=== PATIENT | male | born 1930 | race Hispanic/Latino ===

== ENCOUNTER → 2018-03-26 | Outpatient (CLI) | payer MEDICARE ==
[~2018-03-26] MED LIST: AMLO10TA6 PO; CARV25TA PO; GLIP5TAB11 PO; GUAI118S23 PO; INSU3INS3 SQ; LEVO25TA54 PO; RANO500T3 PO; TAMS0.4C32 PO; TORS100T16 PO; TYL3B PO; ZOLP10TA6 PO
== END | disposition home or self-care (01) ==
LOC: SHCH 09:47
PROVIDERS: ATTEND Internal Medicine Cardiovascular Disease
DX: R09.89 Other specified symptoms and signs involving the circulatory and respiratory systems (principal)
CPT/HCPCS: 93880

== ENCOUNTER → 2018-12-18 | Outpatient (CLI) | payer MEDICARE ==
[~2018-12-18] MED LIST changes: +ACET-66 PO; +ALPR0.255 PO; -AMLO10TA6 PO; +ASPI-555 PO; +ATOR10 PO; +BENZ200C53 PO; +FOLI1TAB15 PO; +FOLI1TAB61 PO; -GLIP5TAB11 PO; -GUAI118S23 PO; -INSU3INS3 SQ; +IRON45TA10 PO; -RANO500T3 PO; +RANO500T5 PO; +ROPI0.5T5 PO; +TAMS-1 PO; -TAMS0.4C32 PO; -TORS100T16 PO; -TYL3B PO; -ZOLP10TA6 PO
== END | disposition home or self-care (01) ==
LOC: SHCH 12:48
PROVIDERS: ATTEND Internal Medicine Cardiovascular Disease
DX: I11.9 Hypertensive heart disease without heart failure (principal); I70.0 Atherosclerosis of aorta
CPT/HCPCS: 93306

== ENCOUNTER → 2019-01-21 | Outpatient (CLI) | payer MEDICARE ==
[~2019-01-21] VITALS: Ht 162.6 cm; Wt 78.0 kg
[~2019-01-21] MED LIST changes: +REGADENOSON 0.4 MG/5 ML PF SYG IVP SCH
== END | disposition home or self-care (01) ==
LOC: SHCH 08:15
PROVIDERS: ATTEND Internal Medicine Cardiovascular Disease
DX: R06.09 Other forms of dyspnea (principal)
CPT/HCPCS: 78452; 93017; 96374; A9500 ×2; J2785